=== PATIENT | female | born 1960 | race Caucasian/White ===

== ENCOUNTER 2019-05-04 17:01 | Emergency (ER) | payer SELFPAY ==
[2019-05-04] MEDS ORDERED: Ketorolac Tromethamine 60 MG/2 ML VIAL ONE (17:13)
--- NOTE | 2019-05-04 21:37 | RAD ---
CHEST TWO VIEWS: Date: 05-05-19 Comparison: None. FINDINGS: The heart is normal in size. There are diffuse fibrotic changes throughout the lungs that are presuma shadia chronic. No lobar consolidation or edema was seen. There are no pleural effusions. There are nume isabella calcific densities around the right glenohumeral joint which could be synovial chondromas. There are degenerative changes in the glenohumeral joint itself on this side. The AC joints are normal in appearance. There is a very slight compression of one of the thoracic vertebrae, approximately T7. Th ere probably were some old injuries to the right 6th or 7th ribs. The same could be said about the le ft 5th through 7th ribs. IMPRESSION: 1. Diffuse fibrotic changes throughout the lungs. 2. Degenerative changes in the right glenohumeral joint along with several bony densities that may be chondromas. POS: HOME
== END 2019-05-04 17:30 | disposition home or self-care (01) ==
LOC: BURERS 17:01
DX: S20.221A Contusion of right back wall of thorax, initial encounter (principal); I10 Essential (primary) hypertension; E78.5 Hyperlipidemia, unspecified; F17.210 Nicotine dependence, cigarettes, uncomplicated; F32.9 Major depressive disorder, single episode, unspecified; Z79.82 Long term (current) use of aspirin; W01.0XXA Fall on same level from slipping, tripping and stumbling without subsequent striking against object, initial encounter
CPT/HCPCS: 71046; 96372; J1885

== ENCOUNTER 2019-05-12 17:53 | Emergency (ER) | payer SELFPAY ==
[2019-05-12] MEDS ORDERED: Ketorolac Tromethamine 30 MG/ML VIAL ONE (18:42)
[2019-05-12] MEDS ORDERED: Azithromycin 250 MG TAB ONE (18:42)
[2019-05-12] MEDS ORDERED: Dexamethasone 4 mg/ml Vial ONE (18:42)
--- NOTE | 2019-05-12 19:28 | RAD ---
TWO VIEWS CHEST: Date: 05-12-19 Comparison: 05-04-19 History: Cough, shortness of breath, right sided chest pain. FINDINGS: There is prominent degenerative change involving the right shoulder with intraarticular loose bodies. There is diffuse increased linear interstitial densities with pulmonary hyperinflation, stable. Bilat eral old rib fractures are seen. Stable anterior wedge compression fracture at T10. No lobar consolidation or alveolar edema. IMPRESSION: Stable chronic findings as described above. No radiographic evidence of acute cardiopulmonary disease . POS: [facility]
== END 2019-05-12 18:52 | disposition home or self-care (01) ==
LOC: BURERS 17:53
DX: J44.0 Chronic obstructive pulmonary disease with (acute) lower respiratory infection (principal); J44.1 Chronic obstructive pulmonary disease with (acute) exacerbation; J18.9 Pneumonia, unspecified organism; F32.9 Major depressive disorder, single episode, unspecified; I10 Essential (primary) hypertension; I25.2 Old myocardial infarction; M19.90 Unspecified osteoarthritis, unspecified site; F17.210 Nicotine dependence, cigarettes, uncomplicated
CPT/HCPCS: 71046; 96372; J1100; J1885